=== PATIENT | male | born 1960 | race Caucasian/White ===

== ENCOUNTER 2017-03-06 18:19 | Emergency (ER) | payer BC ==
[2017-03-06] MEDS ORDERED: ONDANSETRON HCL/PF 2 MG/ML VIAL IV ONE (19:02)
[2017-03-06] MEDS ORDERED: NORMAL SALINE 1,000 ML IV ONE (19:02)
[2017-03-06] MEDS ORDERED: ONDANSETRON HCL/PF 2 MG/ML VIAL ONE (19:04)
[2017-03-06] MEDS ORDERED: SULFAMETHOXAZOLE/TRIMETHOPRIM 1 TAB TABLET ONE (19:16)
--- NOTE | 2017-03-06 20:16 | ERNOTE ---
Dizziness ER Record Date of Service: 03/06/17 Presenting Symptoms: dizziness Time Seen by Provider: 03/06/17 20:06 Source: patient Exam Limitations: no limitations Immunizations: IMMUNIZATION HX Immunizations Up to Date Yes History of Influenza Vaccine No Hx Pneumococcal Vaccination No Allergies/Adverse Reactions: Allergies Allergy/AdvReac Type Severity Reaction Status Date / Time No Known Allergies Allergy Unverified 03/06/17 18:38 Home Medications: HOME MEDICATIONS Amox Tr/Potassium Clavulanate [Augmentin 875-125 Tablet] 875 mg PO Q12H #19 tab 03/06/17 [Last Taken Unknown] Meclizine HCl [Antivert] 25 mg PO Q8H PRN #30 tablet 03/06/17 [Last Taken Unknown] - History of Present Illness Narrative: 56yo, M, presents to ER with dizziness, which started at 16:00 today. States dizziness was so severe it caused vomiting. States dizziness was a spinning sensation and was worse if he moved his head or if he moved his eyes. He reports having ear fullness "like under water" and "needed to pop" for 1 week. He had multiple episodes of vomiting prior to arrival to ER and a few upon arrival to ER. He was started on Zofran and IVF and notes symptoms resolved. Timing and Duration: better - since IVF and Zofran Associated Symptoms: Present: none - ear fullness "like underwater" Modifying Factors - (Worsens): Reports: changing position, movement of head, other - lying flat Review of Systems - Review of Systems Constitutional: Present: diaphoresis. Absent: fever, chills ENT: Present: ear discharge, other - ear fullness. Absent: ear pain, nose congestion, sore throat Cardiology: Absent: chest pain, palpitations, syncope, edema Gastrointestinal/Abdominal: Present: nausea, vomiting. Absent: diarrhea, constipation, abdominal pain Genitourinary: Absent: frequency, pain, dysuria, hematuria Skin: Absent: rash Neurological: Present: dizziness/light-headedness. Absent: headache, numbness - Patient's Past Medical History Patient History - Medical: No pertinent hx Patient History - Cardiac/Respiratory: No pertinent hx Patient History - Cancer: No Hx of Cancer Patient History - Surgical Procedures: No surgical history Patient History - Other: None - Social History Living Situations: spouse Abuse History: No History of abuse Psych History: No pertinent hx Smoking Status: Never smoker Have you smoked in the past 12 months: No Do you dip or chew tobacco: No Alcohol Use: occasionally Drug Use: none - Immunizations Immunizations Up to Date: Yes Hx Pneumococcal Vaccination: No History of Influenza Vaccine: No Physical Exam - Physical Exam General Appearance: Present: wd/wn, alert, no apparent distress, other - Reports symptoms feeling completely resolved after IVF and Zofran Eye Exam: Normal inspection: bilateral, PERRL: bilateral, EOMI: bilateral Ears, Nose, Throat: Present: nasal congestion - moderate sarthak nares, along with moderate inflammation sarthak, pharyngeal erythema - mild with mild inflammation, other - TMs dull, but free of erythema Respiratory: Present: no respiratory distress, normal breath sounds. Absent: rales, rhonchi, wheezing Cardiovascular/Chest: Present: regular rate, rhythm, no murmur, bradycardia - pt runs and lifts weights several times per week Gastrointestinal/Abdominal: Present: nontender, nondistended, soft Extremity Exam: Present: normal range of motion Neurological Exam: Present: alert, oriented, normal mood/affect, no motor/ sensory deficits, hog grader II-XII nml as tested, other - neg pronator drift, neg romberg. Absent: facial droop, motor weakness - strength 5/5 x4 ext Skin Exam: Present: normal color, warm/dry ED Progress - Date and Time Seen: Date and Time: 03/06/17 21:40 While pt symptoms were resolved, he did have strong family hx of heart disease and MT at young age. Decision was made for labs and EKG. Reviewed lab and EKG results with pt and spouse. Exam findings were suggestive of sinusitis and WBC slightly elevated. Will initiate tx for sinusitis. Did advise to schedule f/u with PCP for recheck - Results and Orders Patient's Lab Results:: I have reviewed the patient's lab results. - Vital Signs Patient's Vital Signs:: I have reviewed the patient's vital signs. Vital Signs: Vital Signs 03/06/17 03/06/17 03/06/17 18:33 19:01 20:00 Temperature 36.3 C L Pulse Rate 60 79 76 Respiratory 14 18 18 Rate Blood Pressure 123/75 133/70 O2 Sat by Pulse 99 96 98 Oximetry - EKG EKG: other - bradycardia EKG read: Reviewed by me - Progress/Reassessment Chief Complaint: Dizziness Progress:: Improved Departure Clinical Impression: Vertigo Sinusitis Qualifiers: Sinusitis location: frontal Chronicity: unspecified Qualified Code(s): J32.1 - Chronic frontal sinusitis - Departure Disposition: Home self-care Condition: Good Instructions: Vertigo, [id number] Additional Instructions: Increase fluid intake Schedule follow up with your PCP for recheck in 1 week Return to ER for any new or concerning symptoms Referrals: Luli Wray MD [Primary Care Provider] - Prescriptions: Amox Tr/Potassium Clavulanate [Augmentin 875-125 Tablet] 875 mg PO Q12H #19 tab Meclizine HCl [Antivert] 25 mg PO Q8H PRN #30 tablet PRN Reason: Vertigo
[2017-03-06 20:56] LABS: Hematocrit 40.3 % (42.0-52.0); Hemoglobin 14.4 gm/dL (13.5-18.0); Mean Cell Volume 86.7 fl (78-100); Mean Corpuscular Hgb Conc 35.7 g/dl (32-36); Mean Platelet Volume 9.9 fl (6.0-9.5); Neutrophil # 9.8 K/mm3 (1.3-6.0); Neutrophil % 89.8 % (42-75.0); Platelet Count 191 K/mm3 (150-450); Red Blood Count 4.65 M/mm3 (4.7-6.0); Red Cell Distribution Width 12.4 % (11.5-14.0); White Blood Count 10.9 K/mm3 (4.0-10.5)
[2017-03-06 21:02] VITALS: BP 126/69
[2017-03-06 21:14] LABS: ALT 25 U/L (19-67); AST 18 U/L (0-48); Albumin * 4.4 gm/dl (3.4-5.0); Alkaline Phosphatase * 52 U/L (50-170); Anion Gap 12.7 mmol/L (6.8-13.8); BUN/Creatinine Ratio 17.2 (9.0-21.6); Bilirubin, Total 0.7 mg/dL (0.0-1.1); Blood Urea Nitrogen 16 mg/dL (6-23); Ca. Corrected For Albumin 8.2 mg/dL (8.4-10.2); Calcium * 8.8 mg/dL (7.9-10.9); Carbon Dioxide 27.1 mmol/L (24-32.6); Chloride 108 mmol/L (97-106); Glucose * 110 mg/dL (70-110); Potassium 4.8 mmol/L (3.4-4.6); Sodium 143 mmol/L (132-142); Total Protein 7.8 gm/dL (6.2-8.2)
[2017-03-06 21:15] LABS: Troponin I Less than 0.017 ng/ml (0.00-0.10)
[2017-03-06] MEDS ORDERED: AMOX TR/POTASSIUM CLAVULANATE 875 MG TABLET ONE ×2 (21:47→21:50)
[2017-03-06] MEDS ORDERED: AMOX TR/POTASSIUM CLAVULANATE 875 MG TABLET PO ONE (21:48)
== END 2017-03-06 22:05 | disposition home or self-care (01) ==
LOC: ER 18:19
DX: R42 Dizziness and giddiness (principal); J32.1 Chronic frontal sinusitis
CPT/HCPCS: 36415; 80053; 84484; 85025; 93005; 96374; 99284; J2405